=== PATIENT | female | born 1935 | race Caucasian/White ===

== ENCOUNTER 2022-10-22 14:47 | Outpatient (CLI) | payer OTHER, SELFPAY | END 2022-10-22 14:48 | disposition home or self-care (01) | PROVIDERS: PCP Family Medicine; Visit Provider Family Medicine | DX: Z00.00 Encounter for general adult medical examination without abnormal findings (principal); E03.9 Hypothyroidism, unspecified; Z11.59 Encounter for screening for other viral diseases | CPT/HCPCS: 80053; 84443; 86803 ==

== ENCOUNTER 2023-01-06 06:10 | Day surgery (SDC) | payer OTHER, SELFPAY ==
[2023-01-06] VITALS (8 sets, daily range): BP systolic 153–178; BP diastolic 68–83; PULSE 65–84; RESP 12–16; TEMP 36.2–36.4; O2SAT 93–99; BMI 34.3
--- OUTSIDE RECORDS SUMMARY | 2023-01-06 06:14 | XMS_ITS | Patient Health Record ---
Author Name Unknown Organization [facility] Address [address] [facility] [address], [place] [id number] Care Team Providers Care Historian Dramatic Arts Name Role Phone SELECT, PROVIDER Primary Care Provider Serenity Carlson Unavailable [phone] ALLERGIES No Known Allergies REASON FOR REFERRAL No Information MEDICATIONS Medication SIG (Take, Route, Frequency, Duration) Notes Start Date End Date Status Levothyroxine Sodium 112 MCG 1 tab(s) or ally once a day for thyroid for 90 days Active Vitamin D3 25 MCG (1000 UT) 1 capsule Or ally Once a day for 30 day(s) Active IMMUNIZATIONS Vaccine Route Administration Date Status Comme nts Covid Vaccine (Pfizer) Unknown 04/09/2020 Administered Covid Vaccine (Pfizer) Unknown 04/30/2020 Administered Influenza 3 Years and above WITH Preservative Unknown 12/11/1997 Administered Influenza 3 Years and above WITH Preservative Unknown 01/22/2004 Administered Influenza 3 Years and above WITH Preservative Unknown 12/09/2006 Administered Given elsewhere Influenza 3 Years and above WITH Preservative Unknown 11/15/2009 Administered Given at [facility] Influenza FLUAD 65 and older (Quadrivalent) IM Intramuscular 10/24/2021 Administered Influenza Fluzone High Dose Unknown 11/06/2014 Administered Pneumococcal 13 (Prevnar) IM Intramuscular 12/04/2014 Administered Pneumococcal 23 Adult Unknown 05/04/2005 Administered Pneumococcal 23 Adult IM Intramuscular 03/14/2009 Administered Td (7 yrs and Older) Unknown 03/09/1998 Administered Given elsewhere Td (7 yrs and Older) IM Intramuscular 03/14/2009 Administered Zoster vaccine, live Unknown 07/28/2010 Administered SOCIAL HISTORY Tobacco Use: Social History Observation Description Date Details (start date - stop date) Former Smoker NA - NA Sex Assigned At : Social History Observation Description Sex Assigned At Unknown Tobacco Status Question Answer Notes I am: former smoker How long has it been since you last smoked? > 10 years PROBLEMS Problem Type ICD Code Onset Dates Problem Status W/U Status Risk SNOMED Code Notes Problem Vitamin D deficiency (E55.9) Active confirmed 44329165 Problem Acquired hypothyroidism (E03.9) Active confirmed 115201467 Problem Paresthesias (R20.2) Active confirmed 85124894 Problem Hyperlipidemia, mixed (E78.2) Active confirmed 136592115 Problem Primary osteoarthritis involving multiple joints (M15.0) Active confirmed 165426949 Encounters Encounter Location Date Provider Diagnosis [facility] [address] [place], [place] [id number] 05/11/2022 Serenity Whaley PLAN OF TREATMENT No Information Insurance Providers Payer Name Payer Address Payer Phone Subscriber Number Group Number Insured Name Patient Relationship to Insured Coverage Start Date Coverage End Date [employer] P[employer] MEDICARE ADVANTAGE [address] [address] [place] [address] [id number] KeithYuliya parker Self - patient is the insured 1 MEDICATIONS ADMINISTERED Medication Instructions Date of Administration Dosage Notes Depo Medrol 40 mg/ml (Methylprednisolone) 12/06/2014 40 mg MEDICAL (GENERAL) HISTORY Medical History History ICD Code Controlled Substance Agreement on file DOFV: 09/27/2007 Hypothyroidism- secondary Hyperlipidemia Surgical History Surgery Date(Month/Year) radioactive iodine- toxic goiter Age 32s Cholecystectomy 1997 dental surgery No personal or family history of bleedin g problems hemorrhoidectomy 1957 No personal or family history of anesthe j carlos problems
[2023-01-06] MEDS: ETHYL CHLORIDE 1 APPLICATION 1 APPLIC TOPICAL (07:00)
[2023-01-06] MEDS: BUPIVACAINE 0.5% 30 ML INJECTION (07:00)
--- NOTE | 2023-01-06 07:21 | SUR.OPER ---
PATIENT QUESTIONS ANSWERED SATISFACTORILY PREOPERATIVELY. PATIENT BROUGHT TO OR #3 PER WHEELCHAIR. Patient positioned supine on OR #3 bed. The perioperative team supported arms bilaterally on arm boards. Final approval of positioning by surgeon.
--- NOTE | 2023-01-06 07:40 | P.ORPRC_ITS ---
Procedure Note Date of procedure: 01/06/23 Procedure: PREOPERATIVE DIAGNOSIS: 1. Right carpal tunnel syndrome POSTOPERATIVE DIAGNOSIS: 1. Right carpal tunnel syndrome PROCEDURE: 1. Right open carpal tunnel release SURGEON: Ravindra Kern MD. CURRENCY EXCHANGE SPECIALIST: ROBERT Enrandez ANESTHESIA: Local anesthetic (50:50 mixture of 1% lidocaine with epi and 0.5% marcaine plain) - 10ml total IMPLANTS: None EBL: 2 mL TOURNIQUET: None COMPLICATIONS: None evident INDICATIONS: The patient is a pleasant 87-year-old female who has experienced right hand numbess/tingling affecting the radial 3.5 digits for multiple months. It has progressively gotten worse. Nonoperative management has been tried and failed, and therefore surgery was recommended. DESCRIPTION OF PROCEDURE: Following a thorough discussion of risks, benefits, and alternatives consent was obtained and the operative extremity was marked. The patient was brought to the operating room and placed supine on the operating table. Local anesthesia induction was undertaken in preop holding. No antibiotics were administered as this was planned to be a local case only. Proper time-out was performed identifying proper patient, site, and procedure. The operative extremity was prepped and draped in the appropriate sterile fashion using ChloraPrep. An incision was made in line with the radial border of the ring finger beginning 1 cm distal to the distal wrist crease and progressing for another 2.5cm distal. Caution was taken to stay proximal to Griffith's cardinal line. Sharp incision through the skin, subcutaneous tissue, and palmar fascia was performed. The thenar musculature was bluntly elevated off the transverse carpal ligament. The ligament was directly visualized, and divided sharply with a 15 blade. This was released from its most proximal to the most distal extent. Metzenbaum scissor was also utilized to release the fascia extension proximally. We confirmed complete release of the transverse carpal ligament. Closure was performed with 4-O nylon in interrupted fashion. Soft dressings were applied, and the patient was transferred to the recovery room in stable condition. PLAN: 1. Encourage elevation of the operative extremity. 2. Range of motion of the fingers and hand/wrist as tolerated. 3. Ibuprofen/acetaminophen and/or Percocet as needed for pain control. 4. Follow up with PA visit or nurse visit in 12-16 days for wound check and suture removal.
== END 2023-01-06 08:09 | disposition home or self-care (01) ==
PROVIDERS: PCP Family Medicine; Visit Provider Orthopaedic Surgery Sports Medicine
PROC: (CPT 64721; principal; 2023-01-06 07:30)
DX: G56.01 Carpal tunnel syndrome, right upper limb (principal)
CPT/HCPCS: 64721; J0665

== ENCOUNTER 2023-03-11 11:15 | Outpatient (RCR) | payer OTHER, SELFPAY ==
--- NOTE | 2023-02-18 13:55 | OT.OPOE ---
OT Outpatient Ortho Eval OT Outpatient Ortho Eval* Start: 02/18/23 08:37 Freq: Status: Active Protocol: Document 02/18/23 08:37 TEMITOPE (Rec: 02/18/23 13:44 TEMITOPE [id number]) E-signed By Rosanna Moore, OTR/L, CLT OT OP Ortho Eval Details Complexity Complexity Low Insurance Information Insurance Information [employer] Outpatient History/Precautions Current Condition/Medical Diagnosis Referring Provider Igor Lemons PA-C Treatment Diagnosis Pain in right wrist, M25.531 & G64 Other disorders of peripheral nerves Date of Onset 01/06/2023 Other Precautions MEDICAL DX: R wrist Carpal Tunnel Release 01/06/23 Z98.890 - Other specified postprocedural states (ICD-10) History of carpal tunnel release Z98.890 Other Conditions Left carpal tunnel syndrome ( Acute)-mild-moderate G56.02 - Carpal tunnel syndrome, left upper limb (ICD -10)- History of carpal tunnel release (Acute 01/06/23) 6 weeks postop right open carpal tunnel release. 2022 Dr. Kern- Other specified postprocedural states (ICD-10) Radiculopathy (Acute) Hypothyroidism (Acute) Medical/Functional History Medical History Reviewed Yes Prior Level of Function/Mobility Patient is indep with self cares/IADLs and still driving She resides with her ( who is 91 years old) in [place] 5 adult children, multiple grandkids and great grandkids. Social History Employment Status Retired Hobbies Ensequenceing, massiel Ortho Subjective Subjective Subjective Before I had this surgery done, I was waking up in the middle of the night with a terrible burning sensation in the right hand. I no longer wake up in the middle of the night, but I have a constant pins/needles sensation in the fingertips (all but the little finger) Patient stated that she has never worn a wrist brace at nighttime. Pain Assessment Pain Present Pain Present Pain Reported Location Right Wrist Description Burning,Radiating,Shooting Intensity 5 Range of Motion and Strength Wrist Range of Motion and Strength Wrist Range of Motion and Strength R wrist: AROM: Flexion 60? extension 40? Patient has a lot of muscle guarding when asked to move her R hand Hand/Finger/Thumb Range of Motion and Strength Hand/Finger/Thumb Range of Motion and R hand had increased pain from Strength three point pinch (strength testing) Hand Pinch/Automotive Parts Advisor Strength Hand Right Automotive Parts Advisor Strength Position 1 (lbs) 25 Automotive Parts Advisor Strength Position 2 (lbs) 25 Lateral Pinch Strength (lbs) 10 Three Point Pinch (lbs) 8 Tip Pinch Strength (lbs) 8 Left Automotive Parts Advisor Strength Position 1 (lbs) 45 Automotive Parts Advisor Strength Position 2 (lbs) 45 Lateral Pinch Strength (lbs) 16 Three Point Pinch (lbs) 13 Tip Pinch Strength (lbs) 13 OT Objective Data Hand Hand Dominance Right Hand Function When asking patient to touch each finger to her thumb (R hand) patient stopped after her middle finger, skipping ring finger and little finger due to discomfort. Observations/Posture/Limb Appearance Objective Observations No gross deformity, Mild discomfort to palpation over the surgical scar; which shows some erythema but not fluctuance is healthy and healed. Skin/Wounds/Edema Comments Minimal volar wrist swelling; no ecchymosis, or erythema. Sensation Sensation Assessment Summary Comments R hand/wrist: Mild Tinel's at the wrist retinacular 2+ radial pulse, pink, warm, appropriate capillary refill digits; intact dermatomes and myotomes distally (radial, ulnar, and median nerve distributions) Upper Extremity Special Tests Median Nerve-Carpal Tunnel Wrist Tinel Test right OT Problems Problems Problems Decreased Strength,Decreased Range of Motion,Decreased Dexterity,Pain,Decreased Coordination,Sensory Sensitivity,Lifting,Gripping, Pinching Other Problems Writing,Opening Containers, Dressing,Computer,Fasteners Patient Potential Good Assessment Assessment Assessment This 87 year old female patient was seen by YO on 11/01 for her 6 weeks postoperative right open carpal release (date of surgery 01/06/2023). Reports feeling frustrated that her right hand is not back to her expectation. She notes continued swelling of the wrist, weakness of the hand, unable to hold a pot of water, grasp weakness, and fine pinch dexterity issues such as when trying to sew. She is right-hand dominant. Continues to state that her whole hand is numb, and notes that the scar area is red. Patient acknowledged improvements in that there is no further burning discomfort that wakes from sleep and now notes some pins and needle sensation in long digit, which was previously numb. Patient reports frustrations with the pins and needle sensation in the long digit but was educated that this is a good sign that the median nerve is responding appropriately. Reiterated the education that was provided during the visit with PA on 02/16/23 that with how long the median nerve was compressed, it takes time to respond to having pressure released. Reminded patient of the instruction for vitamin-E oil and digit massage of the wound region and working on AROM and building strength. Patient has a f/u apt with Ortho again in 6 weeks for clinical recheck. PLAN for OT will be 1x/week, recommended NOC brace for R hand/wrist due to the tingling/pins and needles sensation for now, compression glove, which was issued on [employer], size medium with silicone pad for over the scar. Occupational Therapy Treatment Plan - OP Potential Rehabilitation Potential Good Barriers Barriers to goal attainment Former Smoker but quit >15 years ago Mild Cognitive Impairment -may need reminders/handouts for following instructions Set Goals Goals Set with Patient Yes Goals Goals 1. Patient will verbalize 3 activity modifications to decrease abusive/overloading of the muscles, joints & tendons of the wrist/hand. 2. 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 3. Through activity participation in skilled therapy sessions, and consistency in performing a customized HEP, patient will improve capacity of tendons and muscles to manage load in order to have less pain with ADLs, work, leisure activities and IADLs. 4. Patient will accurately perform Median Nerve Glides with use of handout. Target Date 8 weeks Treatment Plan Treatment Plan Evaluation,Edema Control, Iontophoresis,Joint Mobilization,Manual Therapy, Ultrasound,Wound Care/Scar Management,Therapeutic Exercise,Self Care/Home Management,Education Expected Frequency 1-2x Week Expected Duration 8-10 Weeks Recertification Information Recertification Information Initial Certification Date 02/18/23 Recertification Due Date 05/19/23 Click To Default 'Per treatment plan' Per treatment plan Continued Plan of Care and Interventions Per treatment plan Provider Signature Shows Agreement With POC & Medical Necessity Physician Comment/Change Comment or Changes Physician NPI Number #
== END 2023-05-24 14:01 | disposition home or self-care (01) ==
PROVIDERS: PCP Family Medicine; Visit Provider Physician Assistant Surgical
DX: Z98.890 Other specified postprocedural states (principal); M25.531 Pain in right wrist; G64 Other disorders of peripheral nervous system; Z51.89 Encounter for other specified aftercare
CPT/HCPCS: 97110; 97165; X5282

== ENCOUNTER 2023-12-09 12:49 | Outpatient (CLI) | payer OTHER, SELFPAY | END 2023-12-09 12:50 | disposition home or self-care (01) | PROVIDERS: PCP Family Medicine; Visit Provider Family Medicine | DX: E03.9 Hypothyroidism, unspecified (principal); Z13.228 Encounter for screening for other metabolic disorders | CPT/HCPCS: 80053; 84443 ==

== ENCOUNTER 2024-12-18 15:10 | Outpatient (CLI) | payer OTHER, SELFPAY | END 2024-12-18 15:11 | disposition home or self-care (01) | PROVIDERS: PCP Family Medicine; Visit Provider Family Medicine | DX: E03.9 Hypothyroidism, unspecified (principal); R03.0 Elevated blood-pressure reading, without diagnosis of hypertension | CPT/HCPCS: 80053; 82043; 82570; 84443 ==